=== PATIENT | female | born 1950 | race Caucasian/White ===

== ENCOUNTER → 2017-03-08 | Outpatient (CLI) | payer OTHER, MEDICAID | LOC: BHCLAF 13:30 | PROVIDERS: ATTEND Internal Medicine Cardiovascular Disease | DX: I25.10 Atherosclerotic heart disease of native coronary artery without angina pectoris (principal); I51.7 Cardiomegaly; E11.9 Type 2 diabetes mellitus without complications; I10 Essential (primary) hypertension; E78.5 Hyperlipidemia, unspecified | CPT/HCPCS: 93005-PO ==

== ENCOUNTER → 2017-03-15 | Outpatient (CLI) | payer OTHER, MEDICAID | LOC: BHCLAF 13:15 | PROVIDERS: ATTEND Internal Medicine Cardiovascular Disease | DX: I10 Essential (primary) hypertension (principal); R42 Dizziness and giddiness; E11.9 Type 2 diabetes mellitus without complications; E78.5 Hyperlipidemia, unspecified | CPT/HCPCS: 80053-PO; 80061-PO; 82607-90; 84443-PO; 85025-PO; 93306-PO ==

== ENCOUNTER 2017-05-22 22:46 | Emergency (ER) | payer OTHER, MEDICAID ==
--- NOTE | 2017-05-22 22:57 | EDPHY ---
H & P Time Seen by Provider: 05/22/17 22:57 HPI/ROS: This 66-year-old female presents to the emergency department with her son for complaints of cerumen impaction of her right ear. She tried using cotton soaked in olive oil and irrigation at home without relief. It is causing her some hearing difficulty. She has no ear pain. Review of systems: No fever, headache, throat pain, or neck pain. The patient does have previously diagnosed shingles to her trunk. Past Medical/Surgical History: Past Medical history includes diabetes, hypertension, hyperlipidemia Smoking Status: Never smoked Physical Exam: General: Alert and oriented x3 in no apparent distress HEENT: Normocephalic, atraumatic, pupils equally round, right ear with cerumen occluding the external auditory canal, left ear shows moderate cerumen which does not occlude the external auditory canal. No sign of otitis externa or mastoiditis. Constitutional: Initial Vital Signs Temperature (C) 98.2 F 05/22/17 23:05 Heart Rate 68 05/22/17 23:05 Respiratory Rate 18 05/22/17 23:05 Blood Pressure 151/78 H 05/22/17 23:05 O2 Sat (%) 94 05/22/17 23:05 O2 Delivery Mode Room Air Allergies/Adverse Reactions: No Known Allergies Allergy (Unverified 05/26/12 13:17) Home Medications: Medication Instructions Recorded Flexeril 03/31/15 Lisinopril 03/31/15 Metformin Sr 03/31/15 Norvasc 03/31/15 ASPIRIN 07/04/16 Carvedilol [Coreg] 05/22/17 Pravastatin Sodium 05/22/17 Medical Decision Making ED Course/Re-evaluation: The patient was seen and examined. Debrox solution was placed in bilateral ears for approximately 30 minutes. Both external auditory canals were then irrigated with good result. On repeat exam there was no sign of otitis media. - Data Points Medications Given: Discontinued Medications Carbamide Peroxide (Debrox) 5 drop EACHEAR EDNOW ONE Stop: 05/22/17 23:29 Last Admin: 05/22/17 23:27 Dose: 5 drops Departure - Departure Disposition: Home, Routine, Self-Care Clinical Impression: Impacted cerumen of both ears Condition: Good Instructions: Cerumen Impaction (ED) Referrals: Talha Holder MD [Primary Care Provider] - Follow Up Only If Needed
[2017-05-22 23:07] VITALS: BP 151/78; PULSE 68; RESP 18; TEMP 98.2; O2SAT 94
[2017-05-22] MEDS ORDERED: HYDROGEN PEROXIDE 236 ML BOTTLE TP ONE (23:20)
[2017-05-22] MEDS ORDERED: CARBAMIDE PEROXIDE 15 ML BOTTLE ONE (23:20)
[2017-05-22] MEDS ORDERED: CARBAMIDE PEROXIDE 15 ML BOTTLE EACHEAR ONE (23:28)
== END 2017-05-23 00:15 | disposition home or self-care (01) ==
LOC: CED 22:46
PROC: 3E1B78Z Irrigation of Ear using Irrigating Substance, Via Natural or Artificial Opening (ICD-10-PCS; principal; 2017-05-22)
DX: H61.23 Impacted cerumen, bilateral (principal); E11.9 Type 2 diabetes mellitus without complications; I10 Essential (primary) hypertension; Z79.82 Long term (current) use of aspirin; Z79.84 Long term (current) use of oral hypoglycemic drugs

== ENCOUNTER 2018-01-27 18:01 | Emergency (ER) | payer OTHER, MEDICAID ==
[2018-01-27 18:18] VITALS: BP 179/95; PULSE 91; RESP 18; TEMP 98; O2SAT 91
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
== END 2018-01-27 18:31 | disposition home or self-care (01) ==
LOC: CED 18:01
DX: L25.9 Unspecified contact dermatitis, unspecified cause (principal); I10 Essential (primary) hypertension; Z79.82 Long term (current) use of aspirin; Z79.84 Long term (current) use of oral hypoglycemic drugs